=== PATIENT | female | born 1935 | race American Indian/Alaskan Native ===

== ENCOUNTER 2016-04-29 15:40 | Inpatient (IN) | payer MEDICARE ==
[2016-04-29] MEDS ORDERED: NACL 0.9% 1000 ML 1,000 ML ONE (16:18)
[2016-04-29] MEDS ORDERED: CARDIZEM IV ONE ×2 (16:21→16:50)
[2016-04-29] MEDS ORDERED: TYLENOL PO ONE (16:50)
[2016-04-29 16:52] LABS: Basophils % (Auto) 0.5 % (0.0-1.8); Hematocrit 33.6 % (30.3-42.9); Hemoglobin 10.7 gm/dl (10.1-14.3); Mean Corpuscular HGB Conc 32 % (30-34); Mean Corpuscular Hemoglobin 30 pg (28-32); Mean Corpuscular Volume 94 fl (79-97); Platelet Count 107 K/mm3 (140-440); Red Blood Count 3.59 M/mm3 (3.65-5.03); Red Cell Distribution Width 17.6 % (13.2-15.2); White Blood Count 7.1 K/mm3 (4.5-11.0)
[2016-04-29] MEDS ORDERED: CARDIZEM/D5W 100MG/100ML 100 MG/100 ML BAG IV SCH (17:00)
[2016-04-29 17:02] LABS: INR 1.95 (0.87-1.13)
[2016-04-29 17:03] LABS: Partial Thromboplastin Time 30.3 Sec. (24.2-36.6)
[2016-04-29] MEDS ORDERED: NACL 0.9% 500 ML 500 ML IV ONE (17:05)
--- NOTE | 2016-04-29 17:10 | Emergency Department Report ---
ED Palpitations HPI - General Chief Complaint: Arrhythmia/Palpitations Stated Complaint: AFIB/LOW BP Time Seen by Provider: 04/29/16 16:20 Source: patient, family Mode of arrival: Stretcher Limitations: No Limitations - History of Present Illness Initial Comments: 80 yo female with a past medical history dementia, atrial fibrillation, hyperthyroidism, hypertension, chronic systolic CHF/nonischemic cardiomyopathy with a EF of 40-45%, renal insufficiency, and type 2 diabetes presents to the hospital from [facility] with complaints of elevated heart rate. Patient was admitted here in April 18 into the for [place] fib RVR. shelter noted her heart rate was elevated. Patient does not have any symptoms at this time he denies chest pain, shortness of breath, palpitations, or pain. Patient discharged home on ELiquis - Related Data Home Medications Medication Instructions Recorded Confirmed Last Taken Latanoprost [Xalatan 0.005% eye 1 drop OU DAILY 05/04/14 04/29/16 05/04/14 drops] 0.5 metFORMIN [Glucophage] 500 mg PO BID 05/04/14 04/29/16 Unknown Previous Rx's Medication Instructions Recorded Last Taken Type Timolol 0.5% [Timoptic] 1 drops OU QDAY bottle 04/11/16 Unknown Rx Apixaban [Eliquis] 2.5 mg PO Q12HR #60 tablet 04/22/16 Unknown Rx Famotidine [Pepcid] 20 mg PO QDAY #30 tablet 04/22/16 Unknown Rx Furosemide [Lasix] 20 mg PO QDAY #30 tablet 04/22/16 Unknown Rx Methimazole [Tapazole] 5 mg PO Q8HR #90 tablet 04/22/16 Unknown Rx Metoprolol [Lopressor TAB] 50 mg PO BID #60 tablet 04/22/16 Unknown Rx Allergies Allergy/AdvReac Type Severity Reaction Status Date / Time iodine Allergy Unknown Verified 02/04/16 18:17 ED Review of Systems ROS: Stated complaint: AFIB/LOW BP Other details as noted in HPI Comment: All other systems reviewed and negative Other: Constitutional: No fevers chills Eyes: No eye pain ENT: No ear pain Neck: Denies pain Respiratory: Denies cough wheezing shortness of breath Cardiovascular: As per HPI GI: Denies abdominal pain, nausea, vomiting, diarrhea : Denies dysuria Musculoskeletal: Denies back pain Skin: Denies rash, lesions, erythema Neurologic: Denies headache, numbness, weakness Psychiatric: Denies suicidal ideation, hallucinations ED Past Medical Hx - Past Medical History Hx Hypertension: Yes Hx Heart Attack/AMI: No Hx Congestive Heart Failure: Yes Hx Diabetes: Yes Hx Deep Vein Thrombosis: No Hx Liver Disease: No Hx COPD: No Hx Dementia: Yes Additional medical history: Valvular heart disease with a leakage - Surgical History Hx Coronary Stent: No Hx Pacemaker: No Hx Internal Defibrillator: No Additional Surgical History: L knee - Social History Smoking Status: Never Smoker Substance Use Type: None - Medications Home Medications: Home Medications Medication Instructions Recorded Confirmed Last Taken Type Latanoprost [Xalatan 0.005% eye 1 drop OU DAILY 05/04/14 04/29/16 05/04/14 History drops] 0.5 metFORMIN [Glucophage] 500 mg PO BID 05/04/14 04/29/16 Unknown History Timolol 0.5% [Timoptic] 1 drops OU QDAY bottle 04/11/16 04/29/16 Unknown Rx Apixaban [Eliquis] 2.5 mg PO Q12HR #60 tablet 04/22/16 04/29/16 Unknown Rx Famotidine [Pepcid] 20 mg PO QDAY #30 tablet 04/22/16 04/29/16 Unknown Rx Furosemide [Lasix] 20 mg PO QDAY #30 tablet 04/22/16 04/29/16 Unknown Rx Methimazole [Tapazole] 5 mg PO Q8HR #90 tablet 04/22/16 04/29/16 Unknown Rx Metoprolol [Lopressor TAB] 50 mg PO BID #60 tablet 04/22/16 04/29/16 Unknown Rx ED Physical Exam - General Limitations: No Limitations - Other Other exam information: General: No limitations, patient is alert in no acute distress Head exam: Atraumatic, normocephalic Eyes exam: Normal appearance ENT: Moist mucous membrane, normal oropharynx Neck exam: Normal inspection, full range of motion Respiratory exam: Clear to auscultation bilateral, no wheezes, rales, crackles Cardiovascular: Tachycardic irregular rhythm Abdomen: Soft, nondistended, and nontender, with normal bowel sounds, no rebound, or guarding Extremity: Full range of motion normal inspection no deformity Back: Normal Inspection, full range of motion, no tenderness Neurologic: Alert, oriented to self, cranial nerves intact, no motor or sensory deficit Psychiatric: normal affect, normal mood Skin: Warm, dry, intact ED Course Vital Signs 04/29/16 04/29/16 04/29/16 16:30 16:41 16:45 Temperature 97.4 F L Pulse Rate 149 H 149 H 56 L Respiratory 16 16 Rate Blood Pressure 105/45 105/45 Blood Pressure 78/47 [Left] O2 Sat by Pulse 100 93 Oximetry 04/29/16 04/29/16 04/29/16 17:22 17:26 17:35 Temperature Pulse Rate 61 61 62 Respiratory 16 16 16 Rate Blood Pressure Blood Pressure 119/74 91/50 100/57 [Left] O2 Sat by Pulse Oximetry 04/29/16 18:24 Temperature Pulse Rate 61 Respiratory 16 Rate Blood Pressure Blood Pressure 103/48 [Left] O2 Sat by Pulse 95 Oximetry - Reevaluation(s) Reevaluation #1: 04/29/16 17:09 Cardizem 20 mg IV bolus given. Heart rate improved to the 60s. SBP decreased to the 70s but increased to 119 after 200 mL of NS - Consultations Consultation #1: 04/29/16 18:[address] Eli dow. Will consult on patient during admission. ED Medical Decision Making - Lab Data Result diagrams: 04/29/16 16:28 04/29/16 16:28 Lab Results 04/29/16 04/29/16 04/29/16 Range/Units 16:28 16:28 16:41 WBC 7.1 (4.5-11.0) K/mm3 RBC 3.59 L (3.65-5.03) M/mm3 Hgb 10.7 (10.1-14.3) gm/dl Hct 33.6 (30.3-42.9) % MCV 94 (79-97) fl MCH 30 (28-32) pg MCHC 32 (30-34) % RDW 17.6 H (13.2-15.2) % Plt Count 107 L (140-440) K/mm3 Lymph % (Auto) 33.2 (13.4-35.0) % [place] % (Auto) 8.2 H (0.0-7.3) % Eos % (Auto) 1.0 (0.0-4.3) % Baso % (Auto) 0.5 (0.0-1.8) % Lymph # 2.4 (1.2-5.4) K/mm3 [place] # 0.6 (0.0-0.8) K/mm3 Eos # 0.1 (0.0-0.4) K/mm3 Baso # 0.0 (0.0-0.1) K/mm3 Seg Neutrophils % 57.1 (40.0-70.0) % Seg Neutrophils # 4.1 (1.8-7.7) K/mm3 PT (12.2-14.9) Sec. INR (0.87-1.13) APTT (24.2-36.6) Sec. Sodium 141 (137-145) mmol/L Potassium 4.5 (3.6-5.0) mmol/L Chloride 104.6 (98-107) mmol/L Carbon Dioxide 21 L (22-30) mmol/L Anion Gap 20 mmol/L BUN 20 H (7-17) mg/dL Creatinine 0.7 (0.7-1.2) mg/dL Estimated GFR > 60 ml/min BUN/Creatinine Ratio 28.57 % Glucose 109 H (65-100) mg/dL POC Glucose (70-105) Calcium 8.0 L (8.4-10.2) mg/dL Magnesium 1.6 L (1.7-2.3) mg/dL Total Creatine Kinase 151 H (30-135) units/L CK-MB (CK-2) 4.6 H (0.0-4.0) ng/mL CK-MB (CK-2) Rel Index 3.0 (0-4) Troponin T 0.044 H (0.00-0.029) ng/mL Triglycerides 112 (2-149) mg/dL Cholesterol 110 (50-199) mg/dL LDL Cholesterol Direct 57 (50-130) mg/dL HDL Cholesterol 31 L (40-59) mg/dL Cholesterol/HDL Ratio 3.54 % TSH < 0.005 L (0.270-4.200) mlU/mL Free T4 1.25 (0.76-1.46) ng/dL 04/29/16 04/29/16 Range/Units 16:42 17:34 WBC (4.5-11.0) K/mm3 RBC (3.65-5.03) M/mm3 Hgb (10.1-14.3) gm/dl Hct (30.3-42.9) % MCV (79-97) fl MCH (28-32) pg MCHC (30-34) % RDW (13.2-15.2) % Plt Count (140-440) K/mm3 Lymph % (Auto) (13.4-35.0) % [place] % (Auto) (0.0-7.3) % Eos % (Auto) (0.0-4.3) % Baso % (Auto) (0.0-1.8) % Lymph # (1.2-5.4) K/mm3 [place] # (0.0-0.8) K/mm3 Eos # (0.0-0.4) K/mm3 Baso # (0.0-0.1) K/mm3 Seg Neutrophils % (40.0-70.0) % Seg Neutrophils # (1.8-7.7) K/mm3 PT 22.3 H (12.2-14.9) Sec. INR 1.95 H (0.87-1.13) APTT 30.3 (24.2-36.6) Sec. Sodium (137-145) mmol/L Potassium (3.6-5.0) mmol/L Chloride (98-107) mmol/L Carbon Dioxide (22-30) mmol/L Anion Gap mmol/L BUN (7-17) mg/dL Creatinine (0.7-1.2) mg/dL Estimated GFR ml/min BUN/Creatinine Ratio % Glucose (65-100) mg/dL POC Glucose 143 H (70-105) Calcium (8.4-10.2) mg/dL Magnesium (1.7-2.3) mg/dL Total Creatine Kinase (30-135) units/L CK-MB (CK-2) (0.0-4.0) ng/mL CK-MB (CK-2) Rel Index (0-4) Troponin T (0.00-0.029) ng/mL Triglycerides (2-149) mg/dL Cholesterol (50-199) mg/dL LDL Cholesterol Direct (50-130) mg/dL HDL Cholesterol (40-59) mg/dL Cholesterol/HDL Ratio % TSH (0.270-4.200) mlU/mL Free T4 (0.76-1.46) ng/dL - EKG Data -: EKG Interpreted by Me (atrial fibrillation 133 inferior lateral T-wave inversions) - EKG Data When compared to previous EKG there are: no significant change ( compared to ) - Radiology Data Radiology results: image reviewed (cxr: R pleural effusion) - Medical Decision Making Pt will need admission for further thyroid and hr controll. Card consulted. Stable in ed after treatment - Differential Diagnosis A. fib, hypothyroidism, arrhythmia, electrolyte abnormality Critical Care Time: No Critical care attestation.: If time is entered above; I have spent that time in minutes in the direct care of this critically ill patient, excluding procedure time. ED Disposition Clinical Impression: Atrial fibrillation with RVR, Elevated troponin, Hypomagnesemia, Current use of anticoagulant therapy, Hyperthyroidism, Pleural effusion, right Disposition: OP ADMITTED IP TO THIS HOSP Is pt being admited?: Yes Does the pt Need Aspirin: No Condition: Stable Time of Disposition: 18:31 (Dr Lama/hosp)
[2016-04-29 17:56] LABS: Creatine Kinase MB 4.6 ng/mL (0.0-4.0)
[2016-04-29 17:59] LABS: Anion Gap 20 mmol/L; BUN/Creatinine Ratio 28.57; Blood Urea Nitrogen 20 mg/dL (7-17); Carbon Dioxide 21 mmol/L (22-30); Chloride 104.6 mmol/L (98-107); Creatine Kinase 151 units/L (30-135); Glucose 109 mg/dL (65-100); Magnesium 1.6 mg/dL (1.7-2.3); Potassium 4.5 mmol/L (3.6-5.0); Sodium 141 mmol/L (137-145)
[2016-04-29 18:10] LABS: Cholesterol 110 mg/dL (50-199); HDL Cholesterol 31 mg/dL (40-59); LDL Cholesterol,Direct 57 mg/dL (50-130); Triglycerides 112 mg/dL (2-149)
[2016-04-29] MEDS ORDERED: MAGNESIUM SULFATE 2GM/50ML 2 GM/50 ML BAG IV ONE (18:22)
--- NOTE | 2016-04-29 18:40 | Admit Criteria Form ---
Admission Criteria Documentation: ATRIAL FIBRILLATION Clinical Indications for Admission to Inpatient Care (Place 'X' for any and all applicable criteria): Admission indicated for ANY ONE of the following(1)(2)(3)(4)(5) : [ ]I. Myocardial ischemia [ ]II. Dyspnea or hypoxemia [ ]III. Hemodynamic instability [ ]IV. Heart failure (e.g., pulmonary edema) (7) [ ]V. New-onset (less than 48 hours) atrial fibrillation with high risk for causing complications secondary to comorbidities (eg, symptomatic heart failure ) [ ]. Altered mental status [ ]VII. Syncope [ ]VIII. Patient has implantable cardioverter defibrillator that has fired more than once within past 24hr or needs immediate adjustment of settings that cannot be done other than in inpatient setting. (8) [ ]IX. Suspected accessory pathway (e.g., Zaszd-Iizuhryzm-Zchje syndrome) on ECG [ ]X. Recent systemic thromboembolism (eg, stroke) [ ]XI. Medication toxicity (e.g., digitalis) causing arrhythmia(9) [X]XII. Underlying medical condition that necessitates inpatient care (e.g., thyrotoxicosis, pneumonia) (10) [X]XIII. Continuous ECG monitoring is required for condition causing arrhythmia (e.g., severe hyperkalemia, hypokalemia, acid-base disturbance).(11)(12)(13) [ ]XIV. Initiation of antiarrhythmic drug therapy is needed in patient at high risk of adverse effects as indicated by ANY ONE of the following: [ ]a) Significant structural heart disease (e.g., reduced ejection fraction, congenital heart disease, valvular heart disease) [ ]b) Prolonged QT interval [ ]c) Underlying sinus node or atrioventricular conduction disturbances [ ]d) Need for treatment with antiarrhythmic drugs that have significant proarrhythmic potential (e.g., dofetilide, sotalol, procainamide) [ ]e) Patient whose sinus rhythm has never been observed on ECG [ ]XV. Intolerable symptoms despite optimal outpatient treatment [ ]XVI. Elective or urgent cardioversion that cannot be performed on outpatient basis or during observation care. [A] (Use also Atrial Fibrillation: Observation Care ) as appropriate.(14) [X]XVII.Contraindications and/or Inappropriate clinical situations for Observational Care in patients with Atrial Fibrillation, when ANY ONE of the following is required: [ ]a) Patient with High risk of cardiac embolism (e.g, patients with previous cardiac embolism, LVEF < 40%, age >75 and patients with prosthetic valve) 18 [ ]b) Patient with Moderate risk including DM patient, CAD and patient aged 65-75 18 [X]c) Patient with any change in cardiac biomarker especially troponin should be managed as high risk in an inpatient setting 19 [ ]d) Physician judgement irrespective of ECG and other diagnostic findings 20 [X]XVIII.General contraindications and/or Inappropriate clinical situations for Observational Care in patients with Atrial Fibrillation, when ANY ONE of the following is required: [X]a) Prediction of prolongation of LOS based on ANY ONE of the following may be considered as a contraindication for observational care 2, 3, 4, 5, 6, 7, 8, 9, 10, 11 [X]i) Age > 65 yrs. [ ]ii) Patient arriving by ambulance [ ]iii) Patient with high acuity [ ]iv) Patient requiring vital sign monitoring [ ]v) Patient on IV medication [ ]b) Systolic blood pressures 180mmHg 3,12 [ ]c) Patient with altered mental status including delirium and other alteration of consciousness3 [ ]d) Patient whose discharge disposition will be to a care home home or rehabilitation home should not be managed in Emergency Department Observation Unit. CMS rule requires 3 days hospital stay before such placement.3,13 [ ]e) Patient with failure to thrive due to broad array of etiologies 3,16,17 [ ]f) Inability to ambulate 3,14 Extended stay beyond goal length of stay may be needed for (1)(25)(26): [ ]a) Unstable comorbidities [ ]b) Persistently uncontrolled atrial fibrillation or other arrhythmias [ ]c) Acute thromboembolic event (e.g., stroke, limb ischemia) [ ]d) Need for inpatient attainment of full anticoagulation The original [employer] content created by [employer] has been revised. The portions of the content which have been revised are identified through the use of italic text or in bold, and [email or web address] [employer] has neither reviewed nor approved the modified material. All other unmodified content is copyright [employer]. Please see references footnoted in the original [employer] edition 2016 Admission Criteria Met: Yes
--- NOTE | 2016-04-29 20:38 | History and Physical Report ---
History of Present Illness Date of examination: 04/29/16 Date of admission: 04/29/16 18:41 Chief complaint: Elevated heart rate History of present illness: Patient 80-year-old woman from [facility] with history of systolic heart failure, atrial fib on Eliquis, EF 40-45%, hypertension type 2 diabetes mellitus and dementia who just discharged from hospital on 04/22/2016 for A. fib with RVR. Daughter is at bedside. She was found have hypothyroidism started on low-dose Tapazole. Past History Past Medical History: other (as hpi) Past Surgical History: total knee replacement Social history: full code. denies: smoking, alcohol abuse, prescription drug abuse, IV drug use Family history: diabetes, hypertension Medications and Allergies Allergies Allergy/AdvReac Type Severity Reaction Status Date / Time iodine Allergy Unknown Verified 02/04/16 18:17 Home Medications Medication Instructions Recorded Confirmed Last Taken Type Latanoprost [Xalatan 0.005% eye 1 drop OU DAILY 05/04/14 04/29/16 05/04/14 History drops] 0.5 metFORMIN [Glucophage] 500 mg PO BID 05/04/14 04/29/16 Unknown History Timolol 0.5% [Timoptic] 1 drops OU QDAY bottle 04/11/16 04/29/16 Unknown Rx Apixaban [Eliquis] 2.5 mg PO Q12HR #60 tablet 04/22/16 04/29/16 Unknown Rx Famotidine [Pepcid] 20 mg PO QDAY #30 tablet 04/22/16 04/29/16 Unknown Rx Furosemide [Lasix] 20 mg PO QDAY #30 tablet 04/22/16 04/29/16 Unknown Rx Methimazole [Tapazole] 5 mg PO Q8HR #90 tablet 04/22/16 04/29/16 Unknown Rx Metoprolol [Lopressor TAB] 50 mg PO BID #60 tablet 04/22/16 04/29/16 Unknown Rx Review of Systems ROS unobtainable: due to mental status Exam - Physical Exam Narrative exam: GEN: Cachectic, NAD, AWAKE, ALERT, ORIENTATED 1 HEENT: NCAT, PERRL, EOMI, OP CLEAR NECK: SUPPLE, NO THYROMEGALY, NO JVD, NO LAD CVS: Irregularly irregular NORMAL S1S2 LUNGS/CHEST: CTA B, NORMAL CHEST EXPANSION B, GOOD AIR ENTRY B ABD: SOFT NTND, GBS, NO REBOUND OR GUARDING EXT/SKIN: NO SIGNIFICANT EDEMA OR RASH MSK: Contractures 4 NEURO: CN 2-12 GROSSLY INTACT, NO new FOCAL DEFICITS PSY: CALM - Constitutional Vitals: Temp Pulse Resp BP Pulse Ox 97.4 F L 61 16 103/48 95 04/29/16 16:41 04/29/16 18:24 04/29/16 18:24 04/29/16 18:24 04/29/16 18:24 Results - Labs CBC & Chem 7: 04/29/16 16:28 04/29/16 16:28 - Imaging and Cardiology EKG: image reviewed Assessment and Plan Patient 80-year-old woman from [facility] with history of systolic heart failure, atrial fib on Eliquis, EF 40-45%, hypertension type 2 diabetes mellitus and dementia who just discharged from hospital on 04/22/2016 for A. fib with RVR. Daughter is at bedside. She was found have hypothyroidism started on low-dose Tapazole. She will receive boluses of Cardizem in emergency department and her blood pressure dropped and she received normal saline bolus with improvement of blood pressure. 1. Atrial fibrillation with RVR 2. Hypotension 3. Hyperthyroidism Admit to telemetry start Cardizem, consult cardiology increase Tapazole
[2016-04-29] MEDS ORDERED: TYLENOL PO PRN (20:40)
[2016-04-29] MEDS ORDERED: LOPRESSOR PO SCH (22:00)
[2016-04-29] MEDS: CARDIZEM PO SCH (22:57)
[2016-04-29] MEDS: LOPRESSOR PO SCH (22:58)
[2016-04-29] MEDS: TAPAZOLE PO SCH (22:58)
[2016-04-29] MEDS: GLUCOPHAGE PO SCH (22:58)
[2016-04-29] MEDS: ELIQUIS PO SCH (22:59)
[2016-04-30] MEDS: CARDIZEM PO SCH ×2 (05:42→12:07)
[2016-04-30] MEDS: TAPAZOLE PO SCH ×3 (05:43→21:27)
[2016-04-30] MEDS: ELIQUIS PO SCH ×2 (09:24→21:26)
[2016-04-30] MEDS: LASIX PO SCH (09:25)
[2016-04-30] MEDS: PROTONIX PO SCH (09:25)
[2016-04-30] MEDS: GLUCOPHAGE PO SCH ×2 (09:25→17:14)
[2016-04-30] MEDS: TIMOPTIC OU SCH (09:32)
--- NOTE | 2016-04-30 09:39 | XRay Report ---
Single view chest: Compared to 04/18/16. History: Atrial fib. CHF. Findings: Marked cardiomegaly. Trachea is midline. Moderate right pleural effusion with new left pleural effusion. No consolidation. Impression: Probable CHF.
[2016-04-30] MEDS: LOPRESSOR PO SCH (09:42)
[2016-04-30] MEDS: PEPCID PO SCH (09:43)
[2016-04-30 11:16] LABS: Hematocrit 34.1 % (30.3-42.9); Hemoglobin 10.8 gm/dl (10.1-14.3); Mean Corpuscular HGB Conc 32 % (30-34); Mean Corpuscular Hemoglobin 30 pg (28-32); Mean Corpuscular Volume 95 fl (79-97); Platelet Count 105 K/mm3 (140-440); Red Blood Count 3.59 M/mm3 (3.65-5.03); Red Cell Distribution Width 18.2 % (13.2-15.2); White Blood Count 7.7 K/mm3 (4.5-11.0)
[2016-04-30 11:44] LABS: Anion Gap 19 mmol/L; BUN/Creatinine Ratio 27.14; Blood Urea Nitrogen 19 mg/dL (7-17); Calcium 8.1 mg/dL (8.4-10.2); Carbon Dioxide 19 mmol/L (22-30); Chloride 108.3 mmol/L (98-107); Glucose 104 mg/dL (65-100); Magnesium 2.1 mg/dL (1.7-2.3); Potassium 4.2 mmol/L (3.6-5.0); Sodium 142 mmol/L (137-145)
[2016-04-30] MEDS: XALATAN 0.005% OU SCH (12:08)
--- NOTE | 2016-04-30 12:40 | Consultation ---
History of Present Illness Consult date: 04/30/16 Requesting physician: TAMY GOMEZ Consult reason: arrhythmia, atrial fibrillation, hypotension History of present illness: 80-year-old female with multiple medical problems including mild dementia, hyperthyroidism with recent TSH level that was undetectable, chronic kidney disease, diabetes, glaucoma, new-onset atrial fibrillation with a rapid ventricular response, hypertension, chronic systolic heart failure with a left ventricular ejection fraction of 40-45% who presents to [facility] emergency department with atrial fibrillation and a rapid ventricular response. The patient was recently admitted in March 2016 with Jarrell soto with RVR and at that time was noted to have hyperthyroidism as well. She also had an echocardiogram which revealed an ejection fraction of 4045% with moderate mitral regurgitation moderate to severe tricuspid regurgitation and right ventricular systolic pressure of 65 mmHg. Past History Past Medical History: atrial fib, diabetes, heart failure, hyperthyroidism, other (as hpi) Past Surgical History: total knee replacement Social history: full code. denies: smoking, alcohol abuse, prescription drug abuse, IV drug use Family history: diabetes, hypertension Medications and Allergies Allergies Allergy/AdvReac Type Severity Reaction Status Date / Time iodine Allergy Unknown Verified 02/04/16 18:17 Home Medications Medication Instructions Recorded Confirmed Last Taken Type Latanoprost [Xalatan 0.005% eye 1 drop OU DAILY 05/04/14 04/29/16 05/04/14 History drops] 0.5 metFORMIN [Glucophage] 500 mg PO BID 05/04/14 04/29/16 Unknown History Timolol 0.5% [Timoptic] 1 drops OU QDAY bottle 04/11/16 04/29/16 Unknown Rx Apixaban [Eliquis] 2.5 mg PO Q12HR #60 tablet 04/22/16 04/29/16 Unknown Rx Famotidine [Pepcid] 20 mg PO QDAY #30 tablet 04/22/16 04/29/16 Unknown Rx Furosemide [Lasix] 20 mg PO QDAY #30 tablet 04/22/16 04/29/16 Unknown Rx Methimazole [Tapazole] 5 mg PO Q8HR #90 tablet 04/22/16 04/29/16 Unknown Rx Metoprolol [Lopressor TAB] 50 mg PO BID #60 tablet 04/22/16 04/29/16 Unknown Rx Active Meds: Active Medications Acetaminophen (Tylenol) 650 mg PO Q6H PRN PRN Reason: Non Cardiac Pain or Temp>100.5 Apixaban (Eliquis) 2.5 mg PO Q12HR [facility] Last Admin: 04/30/16 09:24 Dose: 2.5 mg Diltiazem HCl (Cardizem) 30 mg PO Q8H [facility] Last Admin: 04/30/16 12:07 Dose: 30 mg Famotidine (Pepcid) 20 mg PO QDAY [facility] Last Admin: 04/30/16 09:43 Dose: Not Given Furosemide (Lasix) 20 mg PO QDAY [facility] Last Admin: 04/30/16 09:25 Dose: 20 mg Latanoprost (Xalatan 0.005%) 1 drops OU DAILY [facility] Last Admin: 04/30/16 12:08 Dose: 1 drops Metformin HCl (Glucophage) 500 mg PO BIDDIAB [facility] Last Admin: 04/30/16 09:25 Dose: 500 mg Methimazole (Tapazole) 10 mg PO Q8HR [facility] Last Admin: 04/30/16 05:43 Dose: 10 mg Metoprolol Tartrate (Lopressor) 50 mg PO BID [facility] Last Admin: 04/30/16 09:42 Dose: Not Given Pantoprazole Sodium (Protonix) 40 mg PO QDAY [facility] Last Admin: 04/30/16 09:25 Dose: 40 mg Timolol Maleate (Timoptic) 1 drops OU QDAY [facility] Last Admin: 04/30/16 09:32 Dose: 1 drops Review of Systems Constitutional: weight loss, night sweats, no weight gain, no fever Ears, nose, mouth and throat: deferred Breasts: deferred Cardiovascular: palpitations, no chest pain, no orthopnea, no edema Respiratory: shortness of breath, no cough, no excessive sputum, no hemoptysis Gastrointestinal: no abdominal pain, no nausea, no vomiting Genitourinary Female: no pelvic pain, no flank pain, no dysuria Rectal: no pain, no bleeding Musculoskeletal: no neck stiffness, no neck pain Integumentary: no rash, no pruritis Neurological: no paralysis, no weakness Endocrine: no cold intolerance, no heat intolerance Hematologic/Lymphatic: no easy bruising, no easy bleeding Allergic/Immunologic: no urticaria, no allergic rhinitis Physical Examination Vital Signs Pulse BP 149 H 105/45 04/29/16 16:30 04/29/16 16:30 General appearance: no acute distress HEENT: Positive: PERRL Neck: Positive: neck supple, trachea midline Cardiac: Positive: irregularly irregular, Tachycardia Lungs: Positive: Normal Exam Neuro: Positive: Grossly Intact Abdomen: Positive: Unremarkable, Soft, Active Bowel Sounds Skin: Negative: Rash, Suspicious Lesions Extremities: Present: normal, warm. Absent: edema Results 04/30/16 11:00 04/30/16 11:00 CBC 04/30/16 Range/Units 11:00 WBC 7.7 (4.5-11.0) K/mm3 RBC 3.59 L (3.65-5.03) M/mm3 Hgb 10.8 (10.1-14.3) gm/dl Hct 34.1 (30.3-42.9) % Plt Count 105 L (140-440) K/mm3 Comprehensive Metabolic Panel 04/30/16 Range/Units 11:00 Sodium 142 (137-145) mmol/L Potassium 4.2 (3.6-5.0) mmol/L Chloride 108.3 H (98-107) mmol/L Carbon Dioxide 19 L (22-30) mmol/L BUN 19 H (7-17) mg/dL Creatinine 0.7 (0.7-1.2) mg/dL Glucose 104 H (65-100) mg/dL Calcium 8.1 L (8.4-10.2) mg/dL - Imaging and Cardiology Echo: report reviewed (ECHO 04/12: EF 40-45%, mod MR, mod-sev TR, RVSP 65mmHg) Cardiac cath: report reviewed (05/11: per family report: no angio sig CAD) EKG interpretations - Telemetry EKG Rhythm: Atrial Fibrillation Assessment and Plan 80 female atrial fibrillation with RVR readmission for AFIB with RVR Difficulty treating atrial fibrillation is likely secondary to her underlying hyperthyroidism. recommend titrating beta rafiq and discontinuing calcium channel rafiq continue eliquis Hyperthyroidism recommend endocrine evaluation patient daughter reports she is suppose to have outpatient appointment Chronic systolic heart failure/NICM EF 40-45% Continue beta rafiq, not on JOCELYNN for now given need to titrate beta rafiq and recent CKD low dose diuretic Hypertension stable Diabetes Glaucoma Mild Dementia
--- NOTE | 2016-04-30 14:35 | Progress Note ---
Assessment and Plan Assessment and plan: 1. Recurrent A. fib with RVR Likely secondary to hyperthyroidism; TSH undetectable Methimazole dose increased Started on Cardizem drip on admission, but now discontinued per cardiology recommendation; started on beta rafiq and titrating dose up Anticoagulated with Eliquis 2. Chronic systolic heart failure Echocardiogram last month EF 40-45% On beta rafiq and low-dose diuretic; JOCELYNN inhibitor on hold per cardiology recommendation due to recent REMY and the need to titrate beta rafiq dose up 3. Hyperthyroidism See above discussion 4. Diabetes On oral antidiabetics BS in low 100s 5. Glaucoma Continue eyedrops 6. DVT prophylaxis Anticoagulated with Eliquis History Interval history: no complaints, feeling well Hospitalist Physical - Constitutional Vitals: Temp Pulse Resp BP Pulse Ox 97.2 F L 108 H 14 117/71 100 04/30/16 11:47 04/30/16 11:47 04/30/16 11:47 04/30/16 11:47 04/30/16 11:47 General appearance: Present: no acute distress - EENT Eyes: Present: PERRL, EOM intact - Neck Neck: Present: supple, normal ROM. Absent: masses or JVD - Respiratory Respiratory effort: normal Respiratory: bilateral: CTA, negative: rhonchi, wheezing - Cardiovascular Rhythm: irregularly irregular (tachycardic) Heart Sounds: Present: S1 & S2. Absent: systolic murmur - Extremities Extremities: no ischemia - Abdominal General gastrointestinal: soft, non-tender, non-distended, normal bowel sounds - Neurologic Neurologic: CNII-XII intact, no focal deficits Results - Labs CBC & Chem 7: 04/30/16 11:00 04/30/16 11:00 Labs: Laboratory Last Values WBC 7.7 K/mm3 (4.5-11.0) 04/30/16 11:00 RBC 3.59 M/mm3 (3.65-5.03) L 04/30/16 11:00 Hgb 10.8 gm/dl (10.1-14.3) 04/30/16 11:00 Hct 34.1 % (30.3-42.9) 04/30/16 11:00 MCV 95 fl (79-97) 04/30/16 11:00 MCH 30 pg (28-32) 04/30/16 11:00 MCHC 32 % (30-34) 04/30/16 11:00 RDW 18.2 % (13.2-15.2) H 04/30/16 11:00 Plt Count 105 K/mm3 (140-440) L 04/30/16 11:00 Lymph % (Auto) 33.2 % (13.4-35.0) 04/29/16 16:28 [place] % (Auto) 8.2 % (0.0-7.3) H 04/29/16 16:28 Eos % (Auto) 1.0 % (0.0-4.3) 04/29/16 16:28 Baso % (Auto) 0.5 % (0.0-1.8) 04/29/16 16:28 Lymph # 2.4 K/mm3 (1.2-5.4) 04/29/16 16:28 [place] # 0.6 K/mm3 (0.0-0.8) 04/29/16 16:28 Eos # 0.1 K/mm3 (0.0-0.4) 04/29/16 16:28 Baso # 0.0 K/mm3 (0.0-0.1) 04/29/16 16:28 Seg Neutrophils % 57.1 % (40.0-70.0) 04/29/16 16:28 Seg Neutrophils # 4.1 K/mm3 (1.8-7.7) 04/29/16 16:28 PT 22.3 Sec. (12.2-14.9) H 04/29/16 16:42 INR 1.95 (0.87-1.13) H 04/29/16 16:42 APTT 30.3 Sec. (24.2-36.6) 04/29/16 16:42 Sodium 142 mmol/L (137-145) 04/30/16 11:00 Potassium 4.2 mmol/L (3.6-5.0) 04/30/16 11:00 Chloride 108.3 mmol/L (98-107) H 04/30/16 11:00 Carbon Dioxide 19 mmol/L (22-30) L 04/30/16 11:00 Anion Gap 19 mmol/L 04/30/16 11:00 BUN 19 mg/dL (7-17) H 04/30/16 11:00 Creatinine 0.7 mg/dL (0.7-1.2) 04/30/16 11:00 Estimated GFR > 60 ml/min 04/30/16 11:00 BUN/Creatinine Ratio 27.14 % 04/30/16 11:00 Glucose 104 mg/dL (65-100) H 04/30/16 11:00 POC Glucose 134 (70-105) H 04/30/16 12:20 Calcium 8.1 mg/dL (8.4-10.2) L 04/30/16 11:00 Magnesium 2.1 mg/dL (1.7-2.3) 04/30/16 11:00 Total Creatine Kinase 151 units/L (30-135) H 04/29/16 16:28 CK-MB (CK-2) 4.6 ng/mL (0.0-4.0) H 04/29/16 16:28 CK-MB (CK-2) Rel Index 3.0 (0-4) 04/29/16 16:28 Troponin T 0.044 ng/mL (0.00-0.029) H 04/29/16 16:28 Triglycerides 112 mg/dL (2-149) 04/29/16 16:28 Cholesterol 110 mg/dL (50-199) 04/29/16 16:28 LDL Cholesterol Direct 57 mg/dL (50-130) 04/29/16 16:28 HDL Cholesterol 31 mg/dL (40-59) L 04/29/16 16:28 Cholesterol/HDL Ratio 3.54 % 04/29/16 16:28 TSH < 0.005 mlU/mL (0.270-4.200) L 04/29/16 16:41 Free T4 1.25 ng/dL (0.76-1.46) 04/29/16 16:41 - Imaging and Cardiology Chest x-ray: image reviewed
[2016-04-30] MEDS: TENORMIN PO SCH (21:27)
[2016-05-01] MEDS: TAPAZOLE PO SCH ×3 (05:56→21:51)
[2016-05-01] MEDS: TENORMIN PO SCH ×3 (07:10→21:51)
[2016-05-01] MEDS: PROTONIX PO SCH (09:58)
[2016-05-01] MEDS: LASIX PO SCH (09:58)
[2016-05-01] MEDS: ELIQUIS PO SCH ×2 (09:58→21:51)
[2016-05-01] MEDS: PEPCID PO SCH (09:58)
[2016-05-01] MEDS: GLUCOPHAGE PO SCH ×2 (09:58→17:22)
[2016-05-01] MEDS: XALATAN 0.005% OU SCH (09:59)
[2016-05-01] MEDS: TIMOPTIC OU SCH (09:59)
--- NOTE | 2016-05-01 15:59 | Progress Note ---
Assessment and Plan Assessment and plan: 1. Recurrent A. fib with RVR Likely secondary to hyperthyroidism; TSH undetectable Methimazole dose increased Started on Cardizem drip on admission, but now discontinued per cardiology recommendation; started on beta rafiq and titrating dose up Anticoagulated with Eliquis 2. Chronic systolic heart failure Echocardiogram last month EF 40-45% On beta rafiq and low-dose diuretic; JOCELYNN inhibitor on hold per cardiology recommendation due to recent REMY and the need to titrate beta rafiq dose up 3. Hyperthyroidism See above discussion 4. Diabetes On oral antidiabetics BS in low 100s 5. Glaucoma Continue eyedrops 6. DVT prophylaxis Anticoagulated with Eliquis History Interval history: no complaints, feeling well Hospitalist Physical - Constitutional Vitals: Temp Pulse Resp BP Pulse Ox 97.7 F 52 L 20 99/55 99 05/01/16 08:15 05/01/16 08:15 05/01/16 08:15 05/01/16 08:15 05/01/16 08:15 General appearance: Present: no acute distress - EENT Eyes: Present: PERRL, EOM intact - Neck Neck: Present: supple. Absent: enlarged thyroid, masses or JVD - Respiratory Respiratory effort: normal Respiratory: bilateral: CTA, negative: rales, rhonchi - Cardiovascular Rhythm: irregularly irregular Heart Sounds: Present: S1 & S2. Absent: systolic murmur - Extremities Extremities: no ischemia - Abdominal General gastrointestinal: soft, non-tender, non-distended, normal bowel sounds - Integumentary Integumentary: Present: warm, dry. Absent: jaundice, rash - Psychiatric Psychiatric: cooperative - Neurologic Neurologic: CNII-XII intact, no focal deficits Results - Labs CBC & Chem 7: 04/30/16 11:00 04/30/16 11:00 Labs: Laboratory Last Values WBC 7.7 K/mm3 (4.5-11.0) 04/30/16 11:00 RBC 3.59 M/mm3 (3.65-5.03) L 04/30/16 11:00 Hgb 10.8 gm/dl (10.1-14.3) 04/30/16 11:00 Hct 34.1 % (30.3-42.9) 04/30/16 11:00 MCV 95 fl (79-97) 04/30/16 11:00 MCH 30 pg (28-32) 04/30/16 11:00 MCHC 32 % (30-34) 04/30/16 11:00 RDW 18.2 % (13.2-15.2) H 04/30/16 11:00 Plt Count 105 K/mm3 (140-440) L 04/30/16 11:00 Lymph % (Auto) 33.2 % (13.4-35.0) 04/29/16 16:28 [place] % (Auto) 8.2 % (0.0-7.3) H 04/29/16 16:28 Eos % (Auto) 1.0 % (0.0-4.3) 04/29/16 16:28 Baso % (Auto) 0.5 % (0.0-1.8) 04/29/16 16:28 Lymph # 2.4 K/mm3 (1.2-5.4) 04/29/16 16:28 [place] # 0.6 K/mm3 (0.0-0.8) 04/29/16 16:28 Eos # 0.1 K/mm3 (0.0-0.4) 04/29/16 16:28 Baso # 0.0 K/mm3 (0.0-0.1) 04/29/16 16:28 Seg Neutrophils % 57.1 % (40.0-70.0) 04/29/16 16:28 Seg Neutrophils # 4.1 K/mm3 (1.8-7.7) 04/29/16 16:28 PT 22.3 Sec. (12.2-14.9) H 04/29/16 16:42 INR 1.95 (0.87-1.13) H 04/29/16 16:42 APTT 30.3 Sec. (24.2-36.6) 04/29/16 16:42 Sodium 142 mmol/L (137-145) 04/30/16 11:00 Potassium 4.2 mmol/L (3.6-5.0) 04/30/16 11:00 Chloride 108.3 mmol/L (98-107) H 04/30/16 11:00 Carbon Dioxide 19 mmol/L (22-30) L 04/30/16 11:00 Anion Gap 19 mmol/L 04/30/16 11:00 BUN 19 mg/dL (7-17) H 04/30/16 11:00 Creatinine 0.7 mg/dL (0.7-1.2) 04/30/16 11:00 Estimated GFR > 60 ml/min 04/30/16 11:00 BUN/Creatinine Ratio 27.14 % 04/30/16 11:00 Glucose 104 mg/dL (65-100) H 04/30/16 11:00 POC Glucose 177 (70-105) H 05/01/16 11:54 Calcium 8.1 mg/dL (8.4-10.2) L 04/30/16 11:00 Magnesium 2.1 mg/dL (1.7-2.3) 04/30/16 11:00 Total Creatine Kinase 151 units/L (30-135) H 04/29/16 16:28 CK-MB (CK-2) 4.6 ng/mL (0.0-4.0) H 04/29/16 16:28 CK-MB (CK-2) Rel Index 3.0 (0-4) 04/29/16 16:28 Troponin T 0.044 ng/mL (0.00-0.029) H 04/29/16 16:28 Triglycerides 112 mg/dL (2-149) 04/29/16 16:28 Cholesterol 110 mg/dL (50-199) 04/29/16 16:28 LDL Cholesterol Direct 57 mg/dL (50-130) 04/29/16 16:28 HDL Cholesterol 31 mg/dL (40-59) L 04/29/16 16:28 Cholesterol/HDL Ratio 3.54 % 04/29/16 16:28 TSH < 0.005 mlU/mL (0.270-4.200) L 04/29/16 16:41 Free T4 1.25 ng/dL (0.76-1.46) 04/29/16 16:41
[2016-05-02] MEDS: TAPAZOLE PO SCH ×3 (05:31→22:25)
[2016-05-02] MEDS: GLUCOPHAGE PO SCH ×2 (09:16→18:22)
--- NOTE | 2016-05-02 10:46 | Progress Note ---
Assessment and Plan Atrial fibrillation with RVR-->due to underlying hyperthyroidism d/c atenolol and initiate metoprolol 50mg TID continue Eliquis 2.5mg BID continue methiamazole Hyperthyroidism recommend endocrine evaluation patient's daughter reports she has an OP appointment Chronic systolic heart failure/NICM EF 40-45%-->currently euvolemic Echo 03/2016: EF 40-45%, moderate MR, moderate-severe TR, RVSP 65 mmHg [facility] 04/2014: normal coronaries continue low dose lasix continue beta rafiq, not on ACEI for now given need to titrate beta rafiq and recent REMY Hypertension stable Pulmonary hypertension Diabetes Glaucoma Mild Dementia The patient has been seen in conjunction with Dr. Hutchins who agrees with the assessment and plan of care. Subjective Date of service: 05/02/16 Principal diagnosis: afib Interval history: The patient is resting in bed. No new complaints. Atrial fibrillation with HR 110s on the monitor. Objective Last Vital Signs Temp 97.7 F 05/02/16 10:23 Pulse 54 L 05/02/16 10:23 Resp 16 05/02/16 10:23 BP 126/84 05/02/16 10:23 Pulse Ox 99 05/02/16 10:23 - Physical Examination General: No Apparent Distress HEENT: Positive: PERRL Neck: Positive: neck supple, trachea midline Cardiac: Positive: irregularly irregular, S1/S2 Lungs: Positive: Decreased Breath Sounds Neuro: Positive: Grossly Intact Abdomen: Positive: Unremarkable, Soft, Active Bowel Sounds Skin: Negative: Rash, Suspicious Lesions Extremities: Present: normal, warm. Absent: edema - Imaging and Cardiology EKG: image reviewed Echo: report reviewed (ECHO 04/12: EF 40-45%, mod MR, mod-sev TR, RVSP 65mmHg) Cardiac cath: report reviewed (05/11: per family report: no angio sig CAD) - Telemetry EKG Rhythm: Atrial Fibrillation
[2016-05-02] MEDS: ELIQUIS PO SCH ×2 (12:08→22:25)
[2016-05-02] MEDS: PEPCID PO SCH (12:08)
[2016-05-02] MEDS: PROTONIX PO SCH (12:08)
[2016-05-02] MEDS: LASIX PO SCH (12:08)
[2016-05-02] MEDS: TIMOPTIC OU SCH (12:08)
[2016-05-02] MEDS: XALATAN 0.005% OU SCH (12:09)
--- NOTE | 2016-05-02 12:54 | Query- Nutrition ---
Yajaira Johnson Date:__05/02/2016 [employer] Supervisor/CDS:ShaguftaPeter Hongbari Phone#: Exercise your independent professional judgment when responding to query. Questions asked do not imply a particular answer is desired or expected. We greatly appreciate your clarification on this issue. Clinical Documentation States: The patient is a [id number] Female who was admitted due to Atrial Fibrillation. The patient lives in Nursing facility. BMI 18.8 kg/m3 "Pt states not eating well for 2 weeks" (Nutrition Assessment 04/30/2016). Clinical Findings Show: BMI: Ratio BMI/IBW: Sr.Albumin: Sr. Prealbumin: TLC: Percentage change in body weight: over a period of: ___ Dietary Intake / Treatment: Physical / Other Findings: Please select the most appropriate option 3 [] Mild Malnutrition [] Mild - Moderate Malnutrition [x] Moderate - Severe Malnutrition [] Severe Malnutrition Serum Albumin 2.8 to 3.4 g/dl or Pre-albumin 5 to 17 mg/dl1,2 Inadequate nutritional intake1,2,3,4 NPO > 5 days Weight loss: 5% in 1 month or 7.5% in 3 months or 10% in 6 months1, 3,4 BMI 16 to 18.4 or Weight <90% of ideal body weight1,2,3,4 Serum Albumin < 2.8 g/ dl1,2 Lymphocytes < 1500/ L2 Inadequate nutritional intake3, high stress e.g. major trauma, sepsis,pancreatitis, tolbert etc. Decubitus ulcers1,2, , skin breakdown2, easy hair pluckability2 Weight <80% standard for height2 Triceps skin fold <3 mm2 Mid-arm muscle circumference <15 cm2 Creatinine-height index <60% standard2 [ ] Cachexia [ ] Emaciated w/Malnutrition [ ] Other: [ ] Unable to determine [ ] Comment/Explanation: Present on Admission: [x ] Yes (Y) [ ] Clinically undeterminable (W) [ ] No (N) Please also document response in your Progress Notes and/or Discharge Summary and indicate if the condition was present on admission. MTDD
--- NOTE | 2016-05-02 15:32 | Progress Note ---
Assessment and Plan Assessment and plan: 1. Recurrent A. fib with RVR Likely secondary to hyperthyroidism; TSH undetectable Methimazole dose increased Started on Cardizem drip on admission, but now discontinued per cardiology recommendation; started on beta rafiq and titrating dose up; was on atenolol which was discontinued by cardiology today and started on metoprolol tid Anticoagulated with Eliquis Continue to monitor on telemetry 2. Chronic systolic heart failure Echocardiogram last month EF 40-45% On beta rafiq and low-dose diuretic; JOCELYNN inhibitor on hold per cardiology recommendation due to recent REMY and the need to titrate beta rafiq dose up 3. Hyperthyroidism See above discussion Has outpatient endocrinology follow-up scheduled 4. Diabetes On oral antidiabetics BS in low 100s 5. Glaucoma Continue eyedrops 6. DVT prophylaxis Anticoagulated with Eliquis History Interval history: no complaints,doing well, but HR still in 110s Hospitalist Physical - Constitutional Vitals: Temp Pulse Resp BP Pulse Ox 97.7 F 54 L 16 126/84 99 05/02/16 10:23 05/02/16 10:23 05/02/16 10:23 05/02/16 10:23 05/02/16 10:23 General appearance: Present: no acute distress - EENT Eyes: Present: PERRL, EOM intact - Neck Neck: Present: supple, normal ROM. Absent: masses or JVD - Respiratory Respiratory effort: normal Respiratory: bilateral: CTA, negative: rhonchi, wheezing - Cardiovascular Rhythm: regular Heart Sounds: Present: S1 & S2. Absent: systolic murmur - Extremities Extremities: no ischemia - Abdominal General gastrointestinal: soft, non-tender, non-distended, normal bowel sounds - Integumentary Integumentary: Present: warm, dry. Absent: jaundice, rash - Psychiatric Psychiatric: cooperative - Neurologic Neurologic: CNII-XII intact, no focal deficits Results - Labs CBC & Chem 7: 04/30/16 11:00 04/30/16 11:00 Labs: Laboratory Last Values WBC 7.7 K/mm3 (4.5-11.0) 04/30/16 11:00 RBC 3.59 M/mm3 (3.65-5.03) L 04/30/16 11:00 Hgb 10.8 gm/dl (10.1-14.3) 04/30/16 11:00 Hct 34.1 % (30.3-42.9) 04/30/16 11:00 MCV 95 fl (79-97) 04/30/16 11:00 MCH 30 pg (28-32) 04/30/16 11:00 MCHC 32 % (30-34) 04/30/16 11:00 RDW 18.2 % (13.2-15.2) H 04/30/16 11:00 Plt Count 105 K/mm3 (140-440) L 04/30/16 11:00 Lymph % (Auto) 33.2 % (13.4-35.0) 04/29/16 16:28 [place] % (Auto) 8.2 % (0.0-7.3) H 04/29/16 16:28 Eos % (Auto) 1.0 % (0.0-4.3) 04/29/16 16:28 Baso % (Auto) 0.5 % (0.0-1.8) 04/29/16 16:28 Lymph # 2.4 K/mm3 (1.2-5.4) 04/29/16 16:28 [place] # 0.6 K/mm3 (0.0-0.8) 04/29/16 16:28 Eos # 0.1 K/mm3 (0.0-0.4) 04/29/16 16:28 Baso # 0.0 K/mm3 (0.0-0.1) 04/29/16 16:28 Seg Neutrophils % 57.1 % (40.0-70.0) 04/29/16 16:28 Seg Neutrophils # 4.1 K/mm3 (1.8-7.7) 04/29/16 16:28 PT 22.3 Sec. (12.2-14.9) H 04/29/16 16:42 INR 1.95 (0.87-1.13) H 04/29/16 16:42 APTT 30.3 Sec. (24.2-36.6) 04/29/16 16:42 Sodium 142 mmol/L (137-145) 04/30/16 11:00 Potassium 4.2 mmol/L (3.6-5.0) 04/30/16 11:00 Chloride 108.3 mmol/L (98-107) H 04/30/16 11:00 Carbon Dioxide 19 mmol/L (22-30) L 04/30/16 11:00 Anion Gap 19 mmol/L 04/30/16 11:00 BUN 19 mg/dL (7-17) H 04/30/16 11:00 Creatinine 0.7 mg/dL (0.7-1.2) 04/30/16 11:00 Estimated GFR > 60 ml/min 04/30/16 11:00 BUN/Creatinine Ratio 27.14 % 04/30/16 11:00 Glucose 104 mg/dL (65-100) H 04/30/16 11:00 POC Glucose 108 (70-105) H 05/01/16 21:23 Calcium 8.1 mg/dL (8.4-10.2) L 04/30/16 11:00 Magnesium 2.1 mg/dL (1.7-2.3) 04/30/16 11:00 Total Creatine Kinase 151 units/L (30-135) H 04/29/16 16:28 CK-MB (CK-2) 4.6 ng/mL (0.0-4.0) H 04/29/16 16:28 CK-MB (CK-2) Rel Index 3.0 (0-4) 04/29/16 16:28 Troponin T 0.044 ng/mL (0.00-0.029) H 04/29/16 16:28 Triglycerides 112 mg/dL (2-149) 04/29/16 16:28 Cholesterol 110 mg/dL (50-199) 04/29/16 16:28 LDL Cholesterol Direct 57 mg/dL (50-130) 04/29/16 16:28 HDL Cholesterol 31 mg/dL (40-59) L 04/29/16 16:28 Cholesterol/HDL Ratio 3.54 % 04/29/16 16:28 TSH < 0.005 mlU/mL (0.270-4.200) L 04/29/16 16:41 Free T4 1.25 ng/dL (0.76-1.46) 04/29/16 16:41
[2016-05-02] MEDS: LOPRESSOR PO SCH ×2 (18:21→21:34)
[2016-05-02] MEDS: TENORMIN PO SCH (22:25)
[2016-05-03] MEDS: TAPAZOLE PO SCH ×2 (05:17→15:18)
[2016-05-03] MEDS: ELIQUIS PO SCH (09:59)
[2016-05-03] MEDS: PEPCID PO SCH (10:00)
[2016-05-03] MEDS: PROTONIX PO SCH (10:01)
[2016-05-03] MEDS: LASIX PO SCH (10:02)
[2016-05-03] MEDS: TIMOPTIC OU SCH (10:13)
[2016-05-03] MEDS: GLUCOPHAGE PO SCH (10:14)
[2016-05-03] MEDS: LOPRESSOR PO SCH (10:15)
--- NOTE | 2016-05-03 11:11 | Progress Note ---
Assessment and Plan Atrial fibrillation with RVR-->due to underlying hyperthyroidism continue metoprolol, will increase to 75mg TID continue Eliquis 2.5mg BID continue methiamazole Hyperthyroidism recommend endocrine evaluation patient's daughter reports she has an OP appointment Chronic systolic heart failure/NICM EF 40-45%-->currently euvolemic Echo 03/2016: EF 40-45%, moderate MR, moderate-severe TR, RVSP 65 mmHg [facility] 04/2014: normal coronaries continue low dose lasix continue beta rafiq, not on ACEI for now given need to titrate beta rafiq and recent REMY Hypertension stable Pulmonary hypertension Diabetes Glaucoma Mild Dementia Will increase metoprolol to 75 mg TID and continue to observe on the monitor. May d/c this afternoon if HR is adequately controlled. The patient has been seen in conjunction with Dr. Hutchins who agrees with the assessment and plan of care. Subjective Date of service: 05/03/16 Principal diagnosis: afib Interval history: The patient is resting comfortably in bed. No new complaints. Atrial fibrillation with HR 100s-120s on the monitor. Objective Last Vital Signs Temp 97.7 F 05/03/16 09:54 Pulse 114 H 05/03/16 10:15 Resp 18 05/03/16 09:54 BP 130/69 05/03/16 10:15 Pulse Ox 99 05/03/16 09:54 - Physical Examination General: No Apparent Distress HEENT: Positive: PERRL Neck: Positive: neck supple, trachea midline Cardiac: Positive: irregularly irregular, S1/S2 Lungs: Positive: clear to auscultation Neuro: Positive: Grossly Intact Abdomen: Positive: Unremarkable, Soft, Active Bowel Sounds Skin: Negative: Rash, Suspicious Lesions Extremities: Present: normal, warm. Absent: edema - Imaging and Cardiology EKG: image reviewed Echo: report reviewed (ECHO 04/12: EF 40-45%, mod MR, mod-sev TR, RVSP 65mmHg) Cardiac cath: report reviewed (05/11: per family report: no angio sig CAD) - Telemetry EKG Rhythm: Atrial Fibrillation
[2016-05-03 13:41] VITALS: BP 123/76
--- NOTE | 2016-05-03 13:56 | Discharge Summary ---
Providers - Providers Date of Admission: 04/29/16 18:41 Date of discharge: 05/03/16 Attending physician: TAMY GOMEZ 04/30/16 17:01 Consult to Wound/ET Nurse [CONS] Routine Reason For Exam: wound eval Primary care physician: [employer] Hospitalization Reason for admission: tachycardia Condition: Stable Pertinent studies: Chest x-ray Hospital course: Patient is 80 years old -[place] female, alf resident, with recently diagnosed atrial fibrillation with RVR secondary to hyperthyroidism, who was started on methimazole, beta rafiq for rate control and anticoagulated with Eliquis and discharged to alf. She was brought back due to elevated heart rate, even though asymptomatic. Acute muscle dose was increased, cardiology consulted and beta rafiq changed from atenolol to metoprolol, then dose and frequency of administration adjusted. Discharged back to alf in stable condition. Outpatient follow up with endocrinology scheduled. Discharge diagnosis: 1. Recurrent A. fib with RVR 2. Chronic systolic heart failure 3. Hyperthyroidism 4. Diabetes 5. Glaucoma 6. DVT prophylaxis Disposition: DC/TX SNF [facility] Time spent for discharge: 35 min Core Measure Documentation - Palliative Care Palliative Care/ Comfort Measures: Not Applicable - Core Measures Any of the following diagnoses?: heart failure - Heart Failure Discharge Requirements JOCELYNN/ARB for LVSD if EF <40%: Yes Beta rafiq at discharge: Yes Exam - Physical Exam Narrative exam: Patient seen and examined: - Constitutional Vitals: Temp Pulse Resp BP Pulse Ox 97.8 F 57 L 18 123/76 96 05/03/16 13:39 05/03/16 13:39 05/03/16 13:39 05/03/16 13:39 05/03/16 13:39 General appearance: Present: no acute distress - Neck Neck: Present: supple, normal ROM. Absent: masses or JVD - Respiratory Respiratory effort: normal Respiratory: bilateral: CTA, negative: rales, rhonchi, wheezing - Cardiovascular Rhythm: irregularly irregular Heart Sounds: Present: S1 & S2. Absent: systolic murmur - Extremities Extremities: no ischemia, No edema - Abdominal General gastrointestinal: Present: soft, non-tender, non-distended, normal bowel sounds - Neurologic Neurologic: no focal deficits Plan Activity: advance as tolerated, fall precautions Diet: low cholesterol, low salt Additional Instructions: Follow-up with endocrinology as already scheduled Follow up with: PRIMARY CARE, [Primary Care Provider] - 3-5 Days Prescriptions: Apixaban [Eliquis] 2.5 mg PO Q12HR #60 tablet Famotidine [Pepcid] 20 mg PO QDAY #30 tablet Furosemide [Lasix TAB] 20 mg PO QDAY #30 tablet Lisinopril [Zestril TAB] 2.5 mg PO QDAY #30 tab metFORMIN [Glucophage] 500 mg PO BID #60 tablet Methimazole [Tapazole] 10 mg PO Q8HR #180 tablet Metoprolol [Lopressor TAB] 75 mg PO TID #270 tablet
[2016-05-03] MEDS ORDERED: LOPRESSOR PO SCH (14:00)
[2016-05-03] MEDS: XALATAN 0.005% OU SCH (17:00)
== END 2016-05-03 17:02 | DRG 643 ==
LOC: ED 15:40 → 4A 18:41
PROVIDERS: ADMIT Internal Medicine; ATTEND Internal Medicine
DX: E05.90 Thyrotoxicosis, unspecified without thyrotoxic crisis or storm (principal); E43 Unspecified severe protein-calorie malnutrition; I50.22 Chronic systolic (congestive) heart failure; J90 Pleural effusion, not elsewhere classified; I13.0 Hypertensive heart and chronic kidney disease with heart failure and stage 1 through stage 4 chronic kidney disease, or unspecified chronic kidney disease; Z68.1 Body mass index [BMI] 19.9 or less, adult; I48.91 Unspecified atrial fibrillation; E83.42 Hypomagnesemia; Z96.659 Presence of unspecified artificial knee joint; I95.9 Hypotension, unspecified; E11.22 Type 2 diabetes mellitus with diabetic chronic kidney disease; N18.9 Chronic kidney disease, unspecified; H40.9 Unspecified glaucoma; F03.90 Unspecified dementia, unspecified severity, without behavioral disturbance, psychotic disturbance, mood disturbance, and anxiety; Z88.8 Allergy status to other drugs, medicaments and biological substances; Z83.3 Family history of diabetes mellitus; Z82.49 Family history of ischemic heart disease and other diseases of the circulatory system; Z79.84 Long term (current) use of oral hypoglycemic drugs
CPT/HCPCS: 36415; 71010; 80048; 80061; 82550; 82553; 82962; 83735; 84439; 84443; 84484; 85025; 85027; 85610; 85730; 93005; 93010; 96365; 96375; J3475; J7030